=== PATIENT | male | born 1980 | race Caucasian/White ===

== ENCOUNTER → 2018-10-26 11:44 | Outpatient (CLI) | payer OTHER, MEDICAID, SELFPAY ==
--- NOTE | 2018-10-26 11:48 | DI.RAD.S_ITS ---
PROCEDURE: XR ANKLE RT MIN 3V INDICATIONS: pain and swelling to ankle after tripping over wood TECHNIQUE: 3 views of the ankle were acquired. COMPARISON: None. FINDINGS: Bones: No fractures or dislocations. Ankle mortise is normally aligned. There is a small ossicle adjacent to the medial malleolus, likely an accessory ossicle or sequelae of old injury. No suspicious bony lesions. Soft tissues: Small tibiotalar joint effusion. Achilles tendon appears normal. Soft tissue swelling in the lateral malleolus. IMPRESSION: No acute osseous injuries. Dictated by: Alphonso Hardy M.D. on 10/26/2018 at 12:31 Approved by: Alphonso Hardy M.D. on 10/26/2018 at 12:34
== END ==
PROVIDERS: Visit Provider Physician Assistant
DX: S99.911A Unspecified injury of right ankle, initial encounter (principal); W18.40XA Slipping, tripping and stumbling without falling, unspecified, initial encounter; M25.471 Effusion, right ankle; M79.89 Other specified soft tissue disorders
CPT/HCPCS: 73610